=== PATIENT | male | born 1985 | race Asian ===

== ENCOUNTER 2022-03-28 10:09 | Emergency (ER) | payer SELFPAY ==
[~2022-03-28] VITALS: Ht 180.3 cm; Wt 93.9 kg
[2022-03-28 10:19] VITALS: BP_SYST 133
--- NOTE | 2022-03-28 10:21 | NUR ---
Patient to ER bed 04 to gown for evaluation. Side rails up. Report given to SHELDON MCGEE
--- NOTE | 2022-03-28 10:55 | NUR ---
37 YEARS OLD MALE PRESENTS TO ER WITH LEFT GROIN PAIN, ABCESS NOTED.
[2022-03-28] MEDS ORDERED: LIDOCAINE 1%, 20 ML MDV 20 ML ONE (10:58)
[2022-03-28] MEDS ORDERED: LIDOCAINE 1% 10 MG/ML, 20 ML MDV INJ ONE (11:00)
[2022-03-28] MEDS ORDERED: CEPH-548 PO (11:12)
--- NOTE | 2022-03-28 11:21 | NUR ---
Patient given written and verbal discharge instructions and verbalizes understanding. ER MD discussed with patient the results and treatment provided. Patient in stable condition. ID arm band removed. Rx of given. Patient educated on pain management and to follow up with PMD. Pain Scale . Opportunity for questions provided and answered. Medication side effect fact sheet provided.
== END 2022-03-28 11:21 | disposition home or self-care (01) ==
LOC: SED 10:09
DX: L02.215 Cutaneous abscess of perineum (principal); Z79.899 Other long term (current) drug therapy
CPT/HCPCS: 10060; 99282; J2001

== ENCOUNTER 2023-03-15 09:21 | Emergency (ER) | payer OTHER ==
[~2023-03-15] VITALS: Ht 180.3 cm; Wt 94.3 kg
[~2023-03-15 09:21] MED LIST: CEPH-548 PO
[2023-03-15 09:31] VITALS: BP_SYST 130; PULSE 69; RESP 16; TEMP 97.7; O2SAT 99
[2023-03-15] MEDS ORDERED: KETOROLAC TROMETHAMINE 60 MG/2 ML VIAL IM ONE (11:15)
[2023-03-15 11:21] LABS: BASOPHILS % (AUTO) 0.4 % (0.0-2.0); EOSINOPHILS # (AUTO) 0.1 K/uL (0.0-0.4); EOSINOPHILS % (AUTO) 1.5 % (0.0-4.0); HEMATOCRIT 46.7 % (36-54); HEMOGLOBIN 15.1 g/dL (14.0-18.0); LYMPHOCYTES # (AUTO) 1.6 K/uL (1.0-5.5); LYMPHOCYTES % (AUTO) 27.4 % (20.5-51.5); MEAN CORPUSCULAR HEMOGLOBIN 30 pg (27-31); MEAN CORPUSCULAR HGB CONC 32 % (32-36); MEAN CORPUSCULAR VOLUME 92 fL (79.0-98.0); MONOCYTES # (AUTO) 0.7 K/uL (0.0-1.0); MONOCYTES % (AUTO) 12.4 % (1.7-9.3); NEUTROPHILS # (AUTO) 3.3 K/uL (1.8-7.7); NEUTROPHILS % (AUTO) 58.3 % (40.0-70.0); PLATELET COUNT (AUTO) 195 K/uL (130-430); RED BLOOD CELL COUNT(AUTO) 5.11 MIL/uL (4.2-6.2); RED CELL DISTRIBUTION WIDTH 12.8 % (9.0-15.0); WHITE BLOOD COUNT (AUTO) 5.7 K/uL (4.8-10.8)
[2023-03-15 11:40] LABS: ANION GAP 21 (5-15); CALCIUM 8.9 mg/dL (8.4-11.0); CARBON DIOXIDE 16 mmol/L (23-29); CHLORIDE 95 mmol/L (98-107); CREATININE 1.12 mg/dL (0.55-1.30); GFR AFRICAN AMERICAN 95 mL/min (>90); GLUCOSE 224 mg/dL (74-106); POTASSIUM 4.3 mmol/L (3.5-5.1); SODIUM SERUM 132 mmol/L (136-145); UREA NITROGEN, BLOOD 10 mg/dL (8-21)
[2023-03-15 11:44] LABS: GFR NON AFRICAN-AMERICAN 78 mL/min (>90)
[2023-03-15] MEDS ORDERED: NAPR-688 PO (12:00)
[2023-03-15 12:08] VITALS: BP_SYST 130; PULSE 94; RESP 21; TEMP 97.8; O2SAT 98
== END 2023-03-15 12:06 | disposition home or self-care (01) ==
LOC: SED 09:21
DX: R07.9 Chest pain, unspecified (principal); Z79.899 Other long term (current) drug therapy
CPT/HCPCS: 99285; 71045; 80048; 85025; 84484; 36415; 93005; 96372; J1885